=== PATIENT | male | born 1985 | race Caucasian/White ===

== ENCOUNTER 2021-07-12 05:11 | Emergency (ER) | payer SELFPAY ==
[2021-07-12] MEDS ORDERED: DELTASONE 20 MG PO ONE (05:28)
[2021-07-12] MEDS ORDERED: DUONEB 0.5-3 MG/3 ml Neb IH ONE ×2 (05:28→05:33)
[2021-07-12] MEDS ORDERED: DELTASONE 20 MG ONE (05:29)
[2021-07-12] MEDS ORDERED: PROVENTIL Solution 2.5 MG/0.5 ML IH ONE (05:43)
--- NOTE | 2021-07-12 05:47 | ERPHSYRPT ---
- History of Present Illness Time Seen by Provider: 07/12/21 05:20 Source: patient Patient Subjective Stated Complaint: I have had this cough x4 days and it hurts worse when I try to take a deep breath Triage Nursing Assessment: Pt c/o cough x4 days with worsening, and states "it hurts worse when I take a deep breath". Pt has a dry, non-prod cough. Pt's lungs chauhan have exp wheezes but clear after coughing. Physician History: Patient is a 35-year-old male presents to our ED for evaluation of a cough that has been ongoing for 4 days. Patient states that he experiences pain when he coughs. Pain is primarily in the anterior chest wall. No pain otherwise. Cough is dry nonproductive. No fever reported. No shortness of breath. Patient is observed to be wheezing. 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 Patient is not vaccinated against COVID-19. Patient symptoms are constant. Symptoms are moderate in intensity. No specific worsening or improving factors. No nausea vomiting diarrhea or rash. Patient states is otherwise healthy. He is a non-smoker but patient admits to vaping. He voices no other complaints or concerns otherwise. Timing/Duration: day(s) (4 days) Cough Quality/Degree: moderate, dry cough Possible Cause: allergen exposure Modifying Factors: Improves With: nothing Associated Symptoms: chest pain/soreness (Anterior chest wall soreness during coughing.), nasal congestion, wheezing, No fever, No lightheadedness, No shortness of breath, No sinus infection Allergies/Adverse Reactions: No Known Drug Allergies Allergy (Unverified 07/12/21 05:32) Hx Tetanus, Diphtheria Vaccination/Date Given: Yes Hx Influenza Vaccination/Date Given: No Hx Pneumococcal Vaccination/Date Given: No Immunizations Up to Date: Yes Travel Risk - International Travel Have you traveled outside of the country in past 3 weeks: No - Coronavirus Screening Are you exhibiting any of the following symptoms?: Yes Symptoms: Cough: New Onset, Shortness of Breath Close contact with a COVID-19 positive Pt in past 14-21 Days: No - Vaccine Status Have you recieved a Covid-19 vaccination: No - Review of Systems Constitutional: No Symptoms, No Fever, No Chills Eyes: No Symptoms Ears, Nose, & Throat: No Symptoms Respiratory: No Symptoms, No Cough, No Dyspnea Cardiac: No Symptoms, No Chest Pain, No Edema, No Syncope Abdominal/Gastrointestinal: No Symptoms, No Abdominal Pain, No Nausea, No Vomiting, No Diarrhea Genitourinary Symptoms: No Symptoms, No Dysuria Musculoskeletal: No Symptoms, No Back Pain, No Neck Pain Skin: No Symptoms, No Rash Neurological: No Symptoms, No Dizziness, No Focal Weakness, No Sensory Changes Psychological: No Symptoms Endocrine: No Symptoms Hematologic/Lymphatic: No Symptoms Immunological/Allergic: No Symptoms All Other Systems: Reviewed and Negative - Past Medical History Pertinent Past Medical History: No Neurological History: No Pertinent History ENT History: No Pertinent History Cardiac History: No Pertinent History Respiratory History: No Pertinent History Endocrine Medical History: No Pertinent History Musculoskeletal History: No Pertinent History GI Medical History: No Pertinent History History: No Pertinent History Psycho-Social History: No Pertinent History Male Reproductive Disorders: No Pertinent History - Past Surgical History Past Surgical History: No Neuro Surgical History: No Pertinent History Cardiac: No Pertinent History Respiratory: No Pertinent History Gastrointestinal: No Pertinent History Genitourinary: No Pertinent History Musculoskeletal: No Pertinent History Male Surgical History: No Pertinent History - Social History Smoking Status: Never smoker Exposure to second hand smoke: No Drug Use: none Patient Lives Alone: No - Nursing Vital Signs Nursing Vital Signs: Initial Vital Signs Temperature 98.4 F 07/12/21 05:17 Pulse Rate 80 07/12/21 05:17 Respiratory Rate 20 07/12/21 05:17 Blood Pressure 125/82 07/12/21 05:17 O2 Sat by Pulse Oximetry 97 07/12/21 05:17 Pain Scale Pain Intensity 8 - Physical Exam General Appearance: no apparent distress, alert Eye Exam: PERRL/EOMI, eyes nml inspection Ears, Nose, Throat Exam: normal ENT inspection, TMs normal, pharynx normal, moist mucous membranes Neck Exam: normal inspection, non-tender, supple, full range of motion Respiratory Exam: chest tenderness (Anterior chest wall tenderness.), airway intact, wheezing (Wheezing bilateral lung chauhan with coarse breath sounds bilaterally.), No respiratory distress Cardiovascular Exam: regular rate/rhythm, normal heart sounds Gastrointestinal/Abdomen Exam: soft, No tenderness Back Exam: normal inspection, No CVA tenderness, No vertebral tenderness Extremity Exam: normal inspection, normal range of motion Neurologic Exam: alert, oriented x 3, cooperative, normal mood/affect, sensation nml, No motor deficits Skin Exam: normal color, warm, dry, No rash Lymphatic Exam: No adenopathy SpO2 Interpretation: normal SpO2: 97 O2 Delivery: Room Air - Course Nursing assessment & vital signs reviewed: Yes - Radiology Exams Chest X-ray Interpretation: Interpreted by me (Slight haziness left base. Otherwise clear lung chauhan. Normal cardiac silhouette. Intact bony thorax.) Ordered Tests: Active Orders 24 hr Category Date Time Status Pulse Oximetry (ED) STAT Care 07/12/21 05:28 Active CHEST 1 VIEW (PORTABLE) Stat Exams 07/12/21 05:22 Taken Respiratory Therapy Assessment DAILY RT 07/12/21 06:12 Active Medication Summary Discontinued Medications Generic Name Dose Route Start Last Admin Trade Name Freq PRN Reason Stop Dose Admin Albuterol Sulfate Confirm 07/12/21 05:43 Albuterol Solution 2.5 Mg/0.5 Ml Ud Solution Administered 07/12/21 05:44 Dose 2.5 mg IH .STK-MED ONE Albuterol/Ipratropium 3 ml 07/12/21 05:28 07/12/21 05:35 Ipratropium/Albuterol Sulfate 3 Ml Ampul.Neb IH 07/12/21 05:29 3 ml STAT ONE Administration Albuterol/Ipratropium Confirm 07/12/21 05:33 Ipratropium/Albuterol Sulfate 3 Ml Ampul.Neb Administered 07/12/21 05:34 Dose 3 ml IH .STK-MED ONE Ketorolac Tromethamine 60 mg 07/12/21 06:37 07/12/21 06:43 Ketorolac Tromethamine 30 Mg/Ml Inj IM 07/12/21 06:38 60 mg STAT ONE Administration Ketorolac Tromethamine Confirm 07/12/21 06:41 Ketorolac Tromethamine 30 Mg/Ml Inj Administered 07/12/21 06:42 Dose 60 mg .ROUTE .STK-MED ONE Levalbuterol HCl Confirm 07/12/21 05:48 Levalbuterol Hcl 1.25 Mg/0.5 Ml Nebule Administered 07/12/21 05:49 Dose 1.25 mg IH .STK-MED ONE Levalbuterol HCl 1.25 mg 07/12/21 06:11 07/12/21 05:55 Levalbuterol Hcl 1.25 Mg/0.5 Ml Nebule IH 07/12/21 06:12 1.25 mg STAT ONE Administration Prednisone 60 mg 07/12/21 05:28 07/12/21 05:30 Prednisone 20 Mg Tablet PO 07/12/21 05:29 60 mg STAT ONE Administration Prednisone Confirm 07/12/21 05:29 Prednisone 20 Mg Tablet Administered 07/12/21 05:30 Dose 60 mg .ROUTE .STK-MED ONE Sodium Chloride Confirm 07/12/21 05:48 Sodium Cl For Inhalation 3 Ml Ud Nebule Administered 07/12/21 05:49 Dose 3 ml IH .STK-MED ONE Lab/Rad Data: Laboratory Results 07/12/21 Range/Units 05:40 Influenza Type A Ag NEGATIVE (NEGATIVE) Influenza Type B Ag NEGATIVE (NEGATIVE) RSV (PCR) NEGATIVE (Negative) SARS-CoV-2 (PCR) NEGATIVE (NEGATIVE) - Progress Progress: improved Air Movement: good Progress Note: Patient reassessed. He feels much better. Wheezing has significantly improved. X-ray shows a slight opacity left lower lung base. Patient received DuoNeb x2 in our ED. A prescription for Z-Cesario was forwarded to patient's pharmacy along with 3 days worth of steroids and an inhaler. Covid test negative. Influenza negative. RSV negative. Patient requesting discharge at this time. Patient states he no longer wants to be observed and is ready to go home. We will discharge patient per his request. 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 Patient agrees to return to our ED if he develops any worsening new or concerning symptoms. He voices no other complaints at this time. Portions of this note were created with voice recognition technology. There may be grammatical, spelling, punctuation or sound alike errors 07/12/21 06:58 Blood Culture(s) Obtained: No Antibiotics given: No Counseled pt/family regarding: diagnosis, need for follow-up, rad results - Departure Departure Disposition: Home Clinical Impression: Cough, Bronchitis Condition: Stable Critical Care Time: No Additional Instructions: Discharge/Care Plan DIETER REEVES was seen on 07/12/21 in the Emergency Room. The patient was counseled regarding Diagnosis,Lab results, Imaging studies, need for follow up and when to return to the Emergency Room. Prescriptions given: Discharge Note I have spoken with the patient and/or caregivers. I have explained the patient's condition, diagnosis and treatment plan based on the information available to me at this time. I have answered the patient's and/or caregiver's questions and addressed any concerns. The patient and/or caregivers have as good understanding of the patient's diagnosis, condition and treatment plan as can be expected at this point. The vital signs have been stable. The patient's condition is stable and appropriate for discharge from the emergency department. The patient will pursue further outpatient evaluation with the primary care physician or other designated or consulting physician as outlined in the discharge instructions. The patient and/or caregivers are agreeable to this plan of care and follow-up instructions have been explained in detail. The patient and/or caregivers have received these instruction. The patient/and or caregivers are aware that any significant change in condition or worsening of symptoms should prompt an immediate return to this or the closest emergency department or call 911. Prescriptions: Prednisone 10 mg [Deltasone 10 mg] 40 mg PO DAILY 3 Days #12 tablet Albuterol 8 gm Mdi Hfa [Ventolin Hfa MDI] 8 gm IH Q4H #1 gm Azithromycin 250 mg [Zithromax 250 MG TABLET] 250 mg PO ZPACK #6 tablet
[2021-07-12] MEDS ORDERED: Xopenex 1.25 MG/0.5 ML UD NEBULE IH ONE ×2 (05:48→06:11)
[2021-07-12] MEDS ORDERED: Sodium Chloride 3 ML UD NEBULES IH ONE (05:48)
[2021-07-12 06:34] LABS: INFLUENZA A NEGATIVE (NEGATIVE); INFLUENZA B NEGATIVE (NEGATIVE); RESPIRATORY SYNCTIAL VIRUS NEGATIVE (Negative); SARS-CoV-2 Xpert Express NEGATIVE (NEGATIVE)
[2021-07-12] MEDS ORDERED: TORAdol 30 mg Injection IM ONE (06:37)
[2021-07-12] MEDS ORDERED: TORAdol 30 mg Injection ONE (06:41)
[2021-07-12 07:00] VITALS: O2SAT 97
[2021-07-12 07:12] VITALS: BP 133/74; PULSE 92
--- NOTE | 2021-07-12 08:54 | XRAY ---
Indication: Cough and congestion. Comparison: None Portable chest demonstrates subtle left base infiltrate versus atelectasis. Remaining heart, lungs, and bony thorax normal.
== END 2021-07-12 07:13 | disposition home or self-care (01) ==
LOC: ED 05:11
DX: R05.9 Cough, unspecified (principal); J40 Bronchitis, not specified as acute or chronic
CPT/HCPCS: 0241U; 71045; 94640; 94760; 96372; 99284; J1885; A9270-GY